=== PATIENT | female | born 1975 | race Caucasian/White ===

== ENCOUNTER 2016-09-26 14:27 | Inpatient (IN) | payer OTHER ==
--- NOTE | 2016-09-26 16:51 | History and Physical Report ---
History of Present Illness Date of examination: 09/26/16 Date of admission: 09/26/16 14:27 History of present illness: 40 yo EDC of 09/28/16 by LMP at 39.5 weeks gestation presented to office today with c/o decreased FM x 3 days. She is currently a GDMA1, AMA, GBS and has a favorable cervix by office exam. She was a transfer into care at 30.5 weeks gestation. Past History Past Medical History: no pertinent history Past Surgical History: no surgical history Family/Genetic History: none Social history: no significant social history - Obstetrical History Expected Date of Delivery: 09/28/16 Actual Gestation: 39 Week(s) 5 Day(s) : 4 Para: 3 Number of Living Children: 3 Medications and Allergies Allergies Allergy/AdvReac Type Severity Reaction Status Date / Time No Known Allergies Allergy Verified 09/26/16 15:56 Active Meds: Active Medications Lactated Ringer's (Lactated Ringers) 1,000 mls @ 125 mls/hr IV DIRECT BANDAR Review of Systems All systems: negative - Obstetrical FHR: category 1 Uterine Contraction Monitor Mode: External Results All other labs normal. Assessment and Plan A: IUP at 39.5 weeks gestation Decreased FM Category 1 tracing +GBs A1 diabetic AMA Favorable Cervix P: Pitocin induction
[2016-09-26] MEDS ORDERED: BRETHINE SUB-Q PRN (16:53)
[2016-09-26] MEDS ORDERED: BRETHINE IVP PRN (16:53)
[2016-09-26] MEDS ORDERED: STADOL IV PRN (16:53)
[2016-09-26] MEDS ORDERED: ePHEDrine SULFATE IV PRN (16:53)
[2016-09-26] MEDS ORDERED: MINERAL OIL PO PRN (16:53)
[2016-09-26] MEDS ORDERED: POLYCILLIN/NS 2 GM/100 ML 100 ML IV ONE ×2 (16:53→23:38)
[2016-09-26] MEDS ORDERED: SUBLIMAZE IV PRN (16:53)
[2016-09-26] MEDS ORDERED: PITOCin/NS 30 UNIT/500ML 500 ML IV SCH (17:00)
[2016-09-26] MEDS ORDERED: PITOCin/NS 20 UNIT/1000ML DRIP 1,000 ML IV SCH (17:00)
[2016-09-26] MEDS ORDERED: LACTATED RINGERS 1,000 ML IV SCH (17:00)
[2016-09-26 18:09] LABS: Hematocrit 37.1 % (30.3-42.9); Hemoglobin 12.3 gm/dl (10.1-14.3); Mean Corpuscular HGB Conc 33 % (30-34); Mean Corpuscular Hemoglobin 32 pg (28-32); Mean Corpuscular Volume 95 fl (79-97); Platelet Count 147 K/mm3 (140-440); Red Blood Count 3.91 M/mm3 (3.65-5.03); Red Cell Distribution Width 14.4 % (13.2-15.2); White Blood Count 9.3 K/mm3 (4.5-11.0)
[2016-09-26] MEDS: PITOCin/NS 30 UNIT/500ML 500 ML IV SCH (23:47)
[2016-09-27] MEDS: POLYCILLIN/NS 1 GM/50 ML 50 ML IV SCH ×3 (03:45→12:43)
[2016-09-27] MEDS: LACTATED RINGERS 1,000 ML IV SCH ×3 (05:02→11:27)
--- NOTE | 2016-09-27 07:37 | Event Note ---
Date: 09/27/16 Amniotomy performed with clear fluid. Cervix /-2. Continue pitocin. Cat I tracing
[2016-09-27] MEDS: PITOCin/NS 30 UNIT/500ML 500 ML IV SCH ×8 (07:52→12:46)
[2016-09-27] MEDS ORDERED: ePHEDrine SULFATE ONE (09:28)
[2016-09-27] MEDS ORDERED: fentaNYL-BUPIV 2 MCG/ML-0.125% 100 ML EPIDURAL SCH (10:00)
[2016-09-27] MEDS ORDERED: ePHEDrine SULFATE IV PRN (10:00)
[2016-09-27] MEDS ORDERED: NARCAN 2 MG/2 ML IV PRN (10:00)
--- NOTE | 2016-09-27 10:00 | Anesthesia Consultation ---
Anesthesia Consult and Med Hx Date of service: 09/27/16 - Airway Anesthetic Teeth Evaluation: Good ROM Head & Neck: Adequate Mental/Hyoid Distance: Adequate Mallampati Class: Class II Intubation Access Assessment: Probably Good - Pre-Operative Health Status ASA Pre-Surgery Classification: ASA2 Proposed Anesthetic Plan: Epidural, Spinal - Pulmonary Hx Asthma: No COPD: No Hx Pneumonia: No - Cardiovascular System Hx Hypertension: No - Central Nervous System Hx Seizures: No Hx Psychiatric Problems: No - Endocrine Hx Renal Disease: No Hx End Stage Renal Disease: No Hx Hypothyroidism: No Hx Hyperthyroidism: No - Hematic Hx Anemia: No Hx Sickle Cell Disease: No - Other Systems Hx Alcohol Use: No
[2016-09-27] MEDS ORDERED: FLUARIX QUAD 2016-2017(36 MOS+) IM ONE (12:00)
--- NOTE | 2016-09-27 14:29 | Procedure Note ---
OB Delivery Note - Delivery Date of Delivery: 09/27/16 Surgeon: LAMAR HERNANDEZ Estimated blood loss: 300cc - Vaginal Delivery presentation: vertex Delivery position: OA Intrapartum events: none Delivery augmentation: rupture of membranes, pitocin Delivery monitor: external FHT Route of delivery: Delivery placenta: spontaneous Delivery cord: 3 umbilical vessels Episiotomy: none Delivery laceration: none Anesthesia: epidural Delivery comments: The patient progressed to complete complete +2 and post deliver a liveborn male with Apgars of 8 and 9 weight 8 lbs. 6 oz. After delivery of the shoulders the was bulb suctioned. The cord was clamped and cut 2 and infant was placed on the patient's abdomen. The placenta delivered spontaneously intact with a three-vessel cord. No lacerations were noted. EBL is 300 mL. - Infant A at 1 minute: 8 at 5 minutes: 9 Infant Gender: Male (weight 8 lbs. 6 oz.)
[2016-09-27] MEDS ORDERED: LANSINOH TP PRN (14:30)
[2016-09-27] MEDS ORDERED: TUCKS PAD TP PRN (14:30)
[2016-09-27] MEDS ORDERED: DULCOLAX PR PRN (14:30)
[2016-09-27] MEDS ORDERED: MILK OF MAGNESIA PO PRN (14:30)
[2016-09-27] MEDS ORDERED: NORCO 5/325 PO PRN (14:30)
[2016-09-27] MEDS ORDERED: TYLENOL PO PRN (14:30)
[2016-09-27] MEDS ORDERED: PHENERGAN PO PRN (14:30)
[2016-09-27] MEDS ORDERED: PHENERGAN PR PRN (14:30)
[2016-09-27] MEDS ORDERED: ZOFRAN IV PRN (14:30)
[2016-09-27] MEDS ORDERED: BENADRYL PO PRN (14:30)
[2016-09-27] MEDS ORDERED: DERMOPLAST TP PRN (14:30)
[2016-09-27] MEDS ORDERED: SODIUM CHLORIDE FLUSH SYRINGE 10 ML IV NR (15:00)
[2016-09-27] MEDS: MOTRIN PO SCH ×2 (16:51→23:37)
[2016-09-28 02:19] LABS: Hematocrit 33.4 % (30.3-42.9)
[2016-09-28] MEDS: MOTRIN PO SCH ×2 (05:44→13:00)
[2016-09-28] MEDS ORDERED: BOOSTRIX IM ONE (06:05)
--- NOTE | 2016-09-28 07:44 | Progress Note ---
Assessment and Plan PPD 1 s/p . doing well. D/c home this pm Subjective - Subjective Date of service: 09/28/16 Principal diagnosis: ppd 1 s/p Interval history: routine ppd care. blood glucose wnl Patient reports: appetite normal, voiding normally, pain well controlled : doing well Objective - Vital Signs Latest vital signs: Vital Signs Temp Pulse Pulse Resp BP BP Pulse Ox 09/28/16 00:00 98.6 F 88 20 134/73 09/27/16 20:00 98.2 F 91 H 20 121/70 09/27/16 16:00 98.2 F 82 20 145/80 09/27/16 15:18 99 H 136/75 09/27/16 15:09 97 H 137/63 09/27/16 15:03 95 H 146/71 09/27/16 14:48 101 H 132/68 09/27/16 14:38 99.2 F 125/72 09/27/16 14:33 116 H 141/89 09/27/16 14:06 107 H 98 09/27/16 14:01 96 H 98 09/27/16 13:56 102 H 99 09/27/16 13:51 99 H 99 09/27/16 13:50 96 H 125/72 09/27/16 13:46 101 H 98 09/27/16 13:41 102 H 98 09/27/16 13:36 95 H 98 09/27/16 13:31 107 H 98 09/27/16 13:26 100 H 98 09/27/16 13:21 98 H 114/70 98 09/27/16 13:16 90 98 09/27/16 13:11 98 H 97 09/27/16 13:06 91 H 97 09/27/16 13:01 92 H 98 09/27/16 12:56 85 98 09/27/16 12:51 88 98 09/27/16 12:50 87 117/64 09/27/16 12:47 85 110/68 09/27/16 12:46 85 98 09/27/16 12:41 91 H 97 09/27/16 12:36 103 H 97 09/27/16 12:31 92 H 97 09/27/16 12:26 99 H 97 09/27/16 12:21 95 H 98 09/27/16 12:20 105 H 91/53 09/27/16 12:16 88 96 09/27/16 12:11 89 96 09/27/16 12:06 92 H 98 09/27/16 12:01 102 H 97 09/27/16 11:56 88 98 09/27/16 11:51 80 97 09/27/16 11:49 90 117/71 09/27/16 11:46 82 99 09/27/16 11:41 92 H 98 09/27/16 11:36 76 98 09/27/16 11:31 80 98 09/27/16 11:26 91 H 98 09/27/16 11:21 91 H 99 09/27/16 11:20 79 110/72 09/27/16 11:16 84 97 09/27/16 11:11 79 97 09/27/16 11:06 77 96 09/27/16 11:01 81 98 09/27/16 10:56 81 97 09/27/16 10:51 74 97 09/27/16 10:48 81 108/70 09/27/16 10:46 78 96 09/27/16 10:41 78 96 09/27/16 10:36 85 97 09/27/16 10:33 93 H 118/72 09/27/16 10:31 77 97 09/27/16 10:26 81 98 09/27/16 10:21 96 H 97 09/27/16 10:18 83 115/68 09/27/16 10:16 80 96 09/27/16 10:11 74 96 09/27/16 10:06 95 H 97 09/27/16 10:01 81 117/67 96 09/27/16 10:00 97.8 F 114/76 09/27/16 09:59 84 114/76 09/27/16 09:57 85 126/82 09/27/16 09:56 91 H 97 09/27/16 09:55 79 117/79 09/27/16 09:53 77 128/82 09/27/16 09:51 79 117/88 95 09/27/16 09:50 91 H 119/91 09/27/16 09:47 86 123/78 09/27/16 09:45 93 H 131/81 97 09/27/16 09:43 102 H 137/82 09/27/16 09:41 90 130/83 09/27/16 09:40 102 H 97 09/27/16 09:39 98 H 139/86 09/27/16 09:37 100 H 136/86 09/27/16 09:35 100 H 96 09/27/16 08:51 90 136/77 09/27/16 08:17 20 09/27/16 07:53 102 H 136/85 96 Intake and Output 09/27/16 09/28/16 09/28/16 22:59 06:59 14:59 Intake Total 240 120 Output Total 700 600 Balance -460 -480 Intake: Oral 240 120 Output: Urine 700 600 Void 700 600 Other: Total, Intake Amount 240 120 Total, Output Amount 700 600 # Voids Void 1 - Exam Breasts: Present: deferred Cardiovascular: Present: Regular rate, Normal S1, Normal S2 Lungs: Present: Clear to auscultation Abdomen: Present: normal appearance, soft Vulva: both: normal Uterus: Present: normal, firm Extremities: Present: normal Incision: Present: normal, dry, intact - Labs Labs: Abnormal lab results 09/27/16 Range/Units 20:16 POC Glucose 143 H (70-105)
--- NOTE | 2016-09-28 07:44 | Discharge Summary ---
Providers - Providers Date of Admission: 09/26/16 14:27 Date of discharge: 09/28/16 Attending physician: LIZETH MISHRA MD Primary care physician: PROPERTY VALUER Hospitalization Reason for admission: induction of labor Delivery: Procedure details: s/p Episiotomy: none Laceration: none Other procedures: none complications: none Discharge diagnosis: IUP at term delivered [place] baby: male Hospital course: routine post course Condition at discharge: Good Disposition: DISCHARGED TO HOME OR SELFCARE - Discharge Diagnoses (1) (normal spontaneous vaginal delivery) Status: Acute (2) Gestational diabetes mellitus (GDM) affecting Status: Acute Plan - Discharge Medications Prescriptions: Ibuprofen [Motrin 800 MG tab] 800 mg PO Q8HR PRN #30 tablet PRN Reason: Pain oxyCODONE /ACETAMINOPHEN [Percocet 5/325] 1 tab PO Q6HR PRN #30 tablet PRN Reason: Pain - Provider Discharge Summary Activity: routine, no sex for 6 weeks, no heavy lifting 4 weeks, no strenuous exercise Diet: routine Instructions: routine Additional instructions: [] Smoking cessation referral if applicable(refer to patient education folder for contact #) [] Refer to [facility]'s [facility] Booklet Call your doctor immediately for: * Fever > 100.5 * Heavy vaginal bleeding ( >1 pad per hour) * Severe persistent headache * Shortness of breath * Reddened, hot, painful area to leg or breast * Drainage or odor from incision. * Keep incision clean and dry at all times and follow doctor's instructions regarding bathing/showering - Follow up plan Follow up: MAMTA MANZO MD [Primary Care Provider] - 7 Days LAMAR HERNANDEZ MD [Staff Physician] - 6 Weeks
[2016-09-28 18:42] VITALS: BP 125/79
== END 2016-09-28 19:00 | disposition home or self-care (01) | DRG 775 ==
LOC: APU 14:27 → LD 18:53 → OB 09-27 15:50
PROVIDERS: ADMIT Obstetrics & Gynecology; ATTEND Obstetrics & Gynecology
PROC: 10E0XZZ Delivery of Products of Conception, External Approach (ICD-10-PCS; principal; 2016-09-27)
PROC: 3E033VJ Introduction of Other Hormone into Peripheral Vein, Percutaneous Approach (ICD-10-PCS; 2016-09-27)
PROC: 00HU33Z Insertion of Infusion Device into Spinal Canal, Percutaneous Approach (ICD-10-PCS; 2016-09-27)
PROC: 3E0R3CZ (ICD-10-PCS; 2016-09-27)
DX: O24.429 Gestational diabetes mellitus in childbirth, unspecified control (principal); O09.523 Supervision of elderly multigravida, third trimester; O99.824 Streptococcus B carrier state complicating childbirth; Z3A.39 39 weeks gestation of pregnancy; Z37.0 Single live birth
CPT/HCPCS: 36415; 82962; 85014; 85018; 85027; 86850; 86900; 86901; 90471; 90686; 90715; A6250; J0290; J2590; J3010; J7120